=== PATIENT | female | born 1975 | race Two or more races ===

== ENCOUNTER 2020-02-05 12:48 | Emergency (ER) | payer MEDICAID ==
[~2020-02-05] VITALS: Ht 160 cm; Wt 77.1 kg
[~2020-02-05 12:48] MED LIST: VENTOLIN HFA18 GM INH
--- NOTE | 2020-02-05 12:50 | NUR ---
ED Nurse Note: Pt brought in by ambulance from home c/o n/v, cough, and chest pain since last night. 100.5 temp, per EMS. Pt is COVID + since last week. Respirations even and unlabored on room air. Vitals stable as documented.
--- NOTE | 2020-02-05 12:58 | Emergency Room Report ---
History of Present Illness General Chief Complaint: Chest Pain Source: EMS Present Illness HPI Disclaimer: Please note that this report is being documented using DRAGON technology. This can lead to erroneous entry secondary to incorrect interpretation by the dictating instrument. HPI: 45-year-old female history of asthma, diabetes, hypertension presents for evaluation of chest pain and muscle aches. Tested positive for COVID-19 last week along with the rest of her family. Denies respiratory difficulty, wheezing or exertional dyspnea. She does report chest pain with deep inspiration and movement particularly in the back shoulders and upper arms. Reports consistent nausea and vomiting for the past 2 days. Unable to eat or drink at home. Denies diarrhea. Reports low-grade fevers. Has not required additional use of her asthma inhaler. 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 EOMI. Cardiovascular: RRR. S1 and S2 normal. No murmur appreciated Resp: Normal work of breathing. No cough, wheezing or crackles appreciated Abdomen: Abdomen is soft, nondistended. Mild epigastric tenderness. No guarding Skin: Intact. No abrasions, laceration or rash over the exposed skin MSK: Normal tone and bulk. Moving all extremities. No obvious deformity. Neuro: Awake and alert. Mentating appropriately. Medical Decision Making Diagnostic Impression: Primary Impression: COVID-19 Additional Impressions: Microscopic hematuria Vomiting ER Course 45-year-old female with history of asthma, diabetes, hypertension recently tested positive for COVID-19 presents for evaluation of persistent vomiting as well as chest and muscle aches. Differential includes was not limited to symptoms related to COVID-19 infection, pneumonia, pneumothorax, ACS, arrhythmia , myocarditis, pericarditis, GERD, esophagitis, gastroenteritis, pancreatitis, cholecystitis to name a few. Patient arrives in stable condition though has a low-grade fever. Will provide antipyretics, IV fluids, antiemetics. EKG, chest x-ray and broad labs ordered. 1430: Labs have returned within normal limits. There is microscopic hematuria but no evidence of a clear urinary tract infection. Chest x-ray does not show obvious infiltrate. EKG is nonischemic and troponin is negative. Believe her chest discomfort and general aches and pains are related to her COVID-19 infection. Patient remains nauseated will be given additional antiemetics and IV fluids. If symptomatically improved may be discharged with outpatient follow-up. Lab Results Impression Laboratory Tests Test 02/05/20 13:00 02/05/20 13:17 White Blood Count 7.2 K/UL (4.8-10.8) Red Blood Count 5.01 M/UL (4.20-5.40) Hemoglobin 10.7 G/DL (12.0-16.0) L Hematocrit 36.4 % (37.0-47.0) L Mean Corpuscular Volume 73 FL (80-99) L Mean Corpuscular Hemoglobin 21.3 PG (27.0-31.0) L Mean Corpuscular Hemoglobin Concent 29.4 G/DL (32.0-36.0) L Red Cell Distribution Width 18.9 % (11.6-14.8) H Platelet Count 295 K/UL (150-450) Mean Platelet Volume 7.8 FL (6.5-10.1) Neutrophils (%) (Auto) 75.2 % (45.0-75.0) H Lymphocytes (%) (Auto) 16.9 % (20.0-45.0) L Monocytes (%) (Auto) 5.8 % (1.0-10.0) Eosinophils (%) (Auto) 1.1 % (0.0-3.0) Basophils (%) (Auto) 1.0 % (0.0-2.0) Sodium Level 143 MMOL/L (136-145) Potassium Level 3.2 MMOL/L (3.5-5.1) L Chloride Level 104 MMOL/L (98-107) Carbon Dioxide Level 23 MMOL/L (21-32) Anion Gap 16 mmol/L (5-15) H Blood Urea Nitrogen 10 mg/dL (7-18) Creatinine 1.0 MG/DL (0.55-1.30) Estimated Glomerular Filtration Rate 59.4 mL/min (>60) Glucose Level 104 MG/DL (74-106) Calcium Level 9.4 MG/DL (8.5-10.1) Total Bilirubin 0.6 MG/DL (0.2-1.0) Aspartate Amino Transferase (AST) 48 U/L (15-37) H Alanine Aminotransferase (ALT) 61 U/L (12-78) Alkaline Phosphatase 91 U/L (46-116) Troponin I 0.000 ng/mL (0.000-0.056) Pro-B-Type Natriuretic Peptide 13 pg/mL (0-125) Total Protein 7.9 G/DL (6.4-8.2) Albumin 4.1 G/DL (3.4-5.0) Globulin 3.8 g/dL Albumin/Globulin Ratio 1.1 (1.0-2.7) Lipase 89 U/L (73-393) Urine Color Red Urine Appearance Cloudy Urine pH 8 (4.5-8.0) Urine Specific [place] 1.010 (1.005-1.035) Urine Protein 2+ (NEGATIVE) H Urine Glucose (UA) Negative (NEGATIVE) Urine Ketones 1+ (NEGATIVE) H Urine Blood 5+ (NEGATIVE) H Urine Nitrite Negative (NEGATIVE) Urine Bilirubin Negative (NEGATIVE) Urine Urobilinogen Normal MG/DL (0.0-1.0) Urine Leukocyte Esterase 2+ (NEGATIVE) H Urine RBC Tntc /HPF (0 - 2) H Urine WBC 2-4 /HPF (0 - 2) Urine Squamous Epithelial Cells Occasional /LPF Urine Bacteria Few /HPF (NONE) EKG Diagnostic Results EKG Time: 12:48 Rate: normal Rhythm: NSR ST Segments: no acute changes Other Impression Sinus rhythm, normal axis, normal intervals, no ST segment changes. Rhythm Strip Diag. Results Rhythm Strip Time: 12:48 EP Interpretation: yes Rate: 80s Rhythm: NSR, no PVC's, no ectopy Chest X-Ray Diagnostic Results Chest X-Ray Diagnostic Results : Chest X-Ray Ordered: Yes # of Views/Limited/Complete: 1 View Indication: Chest Pain EP Interpretation: Yes Interpretation: no consolidation, no effusion, no pneumothorax, no acute cardiopulmonary disease Impression: No acute disease Electronically Signed by: Electronically signed by Dr. Tristin Adhikari Last Vital Signs Date Time Temp Pulse Resp B/P (MAP) Pulse Ox O2 Delivery O2 Flow Rate FiO2 02/05/20 12:38 100.6 87 16 130/70 (90) 100 Room Air Scripts Acetaminophen* (TYLENOL EXTRA STRENGTH*) 500 Mg Tablet 500 MG ORAL Q8H PRN for Prn Headache/Temp > 101, #30 TAB 0 Refills Prov: Tristin Adhikari MD 02/05/20 Tristin Adhikari MD Feb 05, 2020 12:58
[2020-02-05 13:00] VITALS: BP 118/74
[2020-02-05] MEDS ORDERED: Acetaminophen 500mg (ES) tab ORAL ONE ×2 (13:00→13:14)
[2020-02-05 13:35] LABS: EOSINOPHILS % (AUTO) 1.1 % (0.0-3.0); HEMATOCRIT 36.4 % (37.0-47.0); HEMOGLOBIN 10.7 G/DL (12.0-16.0); LYMPHOCYTES % (AUTO) 16.9 % (20.0-45.0); MEAN CORPUSCULAR VOLUME 73 FL (80-99); MONOCYTES % (AUTO) 5.8 % (1.0-10.0); NEUTROPHILS % (AUTO) 75.2 % (45.0-75.0); PLATELET COUNT 295 K/UL (150-450); RED BLOOD COUNT 5.01 M/UL (4.20-5.40); RED CELL DISTRIBUTION WIDTH 18.9 % (11.6-14.8); WHITE BLOOD COUNT 7.2 K/UL (4.8-10.8)
[2020-02-05 13:41] LABS: ANION GAP 16 mmol/L (5-15); BLOOD UREA NITROGEN 10 mg/dL (7-18); CALCIUM 9.4 MG/DL (8.5-10.1); CARBON DIOXIDE 23 MMOL/L (21-32); CHLORIDE 104 MMOL/L (98-107); POTASSIUM 3.2 MMOL/L (3.5-5.1); SODIUM 143 MMOL/L (136-145)
[2020-02-05 13:43] LABS: APPEARANCE,URINE CLOUDY; BILIRUBIN, URINE NEGATIVE (NEGATIVE); GLUCOSE, URINE (UA) NEGATIVE (NEGATIVE); KETONES,URINE 1+ (NEGATIVE); LEUKOCYTE ESTERASE ,URINE 2+ (NEGATIVE); NITRITE,URINE NEGATIVE (NEGATIVE); PH,URINE 8 (4.5-8.0); PROTEIN,URINE 2+ (NEGATIVE); UROBILINOGEN,URINE NORMAL MG/DL (0.0-1.0)
[2020-02-05 13:55] LABS: ALANINE AMINOTRANSFERASE 61 U/L (12-78); ALBUMIN 4.1 G/DL (3.4-5.0); ALBUMIN/GLOBULIN RATIO 1.1 (1.0-2.7); ALKALINE PHOSPHATASE 91 U/L (46-116); ASPARTATE AMINO TRANSFERASE 48 U/L (15-37); BILIRUBIN,TOTAL 0.6 MG/DL (0.2-1.0)
[2020-02-05 13:59] LABS: COLOR,URINE RED
[2020-02-05] MEDS ORDERED: TYLENOL EXTRA500 MG ORAL (14:19)
--- NOTE | 2020-02-05 14:22 | NUR ---
ED Nurse Note: Pt given water and juice for PO challenge
--- NOTE | 2020-02-05 14:40 | NUR ---
ED Nurse Note: Pt vomited after drinking water. Zofran given.
[2020-02-05 15:00] VITALS: BP 121/76
--- NOTE | 2020-02-05 15:21 | Diagnostic Imaging Report ---
Indication: Cough Technique: One view of the chest Comparison: none Findings: Lungs and pleural spaces are clear. The heart size is normal. Impression: Negative
[2020-02-05] MEDS ORDERED: FAMOTIDINE20 MG ORAL (15:45)
[2020-02-05] MEDS ORDERED: ONDANSETRON ODT4 MG BC (15:45)
[2020-02-05 16:15] VITALS: BP 129/83
--- NOTE | 2020-02-05 16:15 | NUR ---
ER DISCHARGE NOTE: Patient is cleared to be discharged per ERMD, pt is aox4, on room air, with stable vital signs. pt was given dc and prescription instructions, pt was able to verbalize understanding, pt id band and iv site removed without complications. pt is able to ambulate with steady gait. pt took all belongings.
== END 2020-02-05 16:15 | disposition home or self-care (01) ==
LOC: EDBD 12:48 → EMR 14:27
DX: U07.1 COVID-19 (principal); R31.9 Hematuria, unspecified; R11.10 Vomiting, unspecified; E11.9 Type 2 diabetes mellitus without complications; I10 Essential (primary) hypertension; R50.9 Fever, unspecified
CPT/HCPCS: 36415; 71045; 80053; 81001; 83690; 83880; 84484; 85025; 96361; 96374; 96376; J2405; J7030; Z7502; 99284